=== PATIENT | female | born 1935 | race Caucasian/White ===

== ENCOUNTER 2016-08-09 16:00 | Inpatient (IN) | payer OTHER, MEDICARE ==
[~2016-08-09] VITALS: Ht 160 cm; Wt 62.8 kg
[~2016-08-09 16:00] MED LIST: AMBIEN10 MG PO; Ativan PO; DIOVAN320 MG PO; Lasix PO; Levothroid,Synthroid PO; Nucynta PO; Potassium PO; Protonix PO; THERAGRAN1 TABLET PO; TOPROL XL50 MG PO; Toprol XL PO; Tums PO; VITAMIN D1000 INTUN PO
[2016-08-09 16:47] LABS: CHLORIDE 107 mEq/L (99-109); POTASSIUM 3.9 mEq/L (3.7-5.4); SODIUM 134 mEq/L (136-147)
[2016-08-09 16:50] LABS: ANION GAP 19 MEQ/L (2-14)
[2016-08-09 16:52] LABS: GFR ESTIMATE (CALCULATED) > 59 mL/min/
[2016-08-09 16:53] LABS: EOSINOPHIL (%) 0.8 % (0-5); HEMATOCRIT 17.5 % (36.0-46.0); IMMATURE GRANULOCYTE (%) 0.8 % (0.0-0.7); IMMATURE GRANULOCYTE COUNT 0.3 K/uL; LYMPHOCYTE COUNT 0.6 K/uL (1.0-2.8); MCH 33.3 PG (29.0-34.0); MCHC 31.4 G/DL (30.0-36.0); MCV 106.1 FL (83-99); MEAN PLAT.VOLUME 8.5 uM^3 (9.5-12.4); MONOCYTE (%) 8.6 % (3-12); MONOCYTE COUNT 0.3 K/uL (0-0.8); NEUTROPHIL COUNT 2.6 K/uL (1.8-6.4); PLATELET COUNT 92 K/uL (156-360); RBC DIS.WIDTH-CV 12.8 % (11.8-14.6); RBC DIS.WIDTH-SD 48.1 % (39-53); RED BLOOD COUNT 1.65 M/uL (3.80-5.20); UREA NITROGEN (BUN) 7 mg/dL (9-23); WHITE BLOOD COUNT 3.6 K/uL (4.1-10.2)
[2016-08-09 17:05] LABS: INTER. NORMALIZED RATIO 1.6; PROTHROMBIN TIME 16.6 (9.2-11.2); PTT 69.9 (25-32)
[2016-08-09 17:09] LABS: GLUCOSE 39 mg/dL (70-99)
[2016-08-09] MEDS ORDERED: LOSARTAN POTAS100 MG PO (19:45)
[2016-08-09] MEDS ORDERED: FUROSEMIDE20 MG PO (19:46)
[2016-08-09] MEDS ORDERED: LEVOTHYROXINE50 MCG PO (19:47)
[2016-08-09] MEDS ORDERED: PROTONIX40 MG PO (19:47)
[2016-08-09] MEDS ORDERED: LORAZEPAM0.5 MG PO ×3 (19:48→19:49)
[2016-08-09] MEDS ORDERED: REFRESH TEARS15 ML BOTH EYES (19:50)
[2016-08-09] MEDS ORDERED: [UNRECOGNIZED DRUG - SUPPLY] TP (19:50)
[2016-08-09] MEDS ORDERED: OMEGA-3 KRILL1 EAC4 PO (19:51)
[2016-08-09] MEDS ORDERED: POTASSIUM GLUCONATE PO (19:53)
[2016-08-09] MEDS ORDERED: VITAMIN B-12500 MC5 SL (19:53)
[2016-08-09] MEDS ORDERED: ALOE VERA JUICE PO (19:54)
[2016-08-09 21:04] VITALS: BP 151/84
[2016-08-09 22:03] LABS: ADD MIUA? NO; BILIRUBIN NEGATIVE; BLOOD NEGATIVE; COLOR YELLOW ((YELLOW)); GLUCOSE (STRIP) NEGATIVE; KETONES NEGATIVE; LEUKOCYTES NEGATIVE; NITRITE NEGATIVE; PROTEIN (STRIP) NEGATIVE; SPECIFIC GRAVITY 1.017 (1.000-1.030); UCUL ADDED? NO; UROBILINOGEN 0.2 MG/DL (0.2-1.0)
[2016-08-09 23:06] LABS: CARBON DIOXIDE (BICARBONATE) 25.8 MEQ/L (20-31)
[2016-08-09 23:10] VITALS: BP 161/97
[2016-08-10 01:11] LABS: TROP-I INTERPRETATION NEGATIVE; TROPONIN-I 0.01 ng/mL (0.0-0.30)
[2016-08-10 04:58] LABS: POINT-OF-CARE METER ID UU14174225
[2016-08-10 07:07] LABS: MCH 33.7 PG (29.0-34.0); MCHC 34.8 G/DL (30.0-36.0); MEAN PLAT.VOLUME 9.4 uM^3 (9.5-12.4); RBC DIS.WIDTH-CV 15.8 % (11.8-14.6); RBC DIS.WIDTH-SD 55.9 % (39-53)
[2016-08-10 07:13] LABS: MCV 96.9 FL (83-99); PLATELET COUNT 170 K/uL (156-360); RED BLOOD COUNT 4.54 M/uL (3.80-5.20); WHITE BLOOD COUNT 5.5 K/uL (4.1-10.2)
[2016-08-10 07:17] LABS: TROP-I INTERPRETATION NEGATIVE; TROPONIN-I < 0.01 ng/mL (0.0-0.30)
[2016-08-10 07:22] LABS: ANION GAP 8 MEQ/L (2-14); CHLORIDE 105 MEQ/L (99-109); IRON 350 MCG/DL (35-150); SAMPLE HEMOLYSIS CHECK 0; SAMPLE ICTERIC CHECK 0; SAMPLE LIPEMIA CHECK 0; UREA NITROGEN (BUN) 12 mg/dL (9-23)
[2016-08-10 07:25] LABS: GFR ESTIMATE (CALCULATED) > 59 mL/min/; GLUCOSE 88 mg/dL (70-99); SODIUM 141 MEQ/L (136-147)
[2016-08-10 07:43] LABS: Estimated Average Glucose 120 mg/dL (70-123); HEMOGLOBIN A1c (GLYCOHEMOGLOB) 5.8 % HGB (Below 5.7)
[2016-08-10 07:53] LABS: POINT-OF-CARE METER ID UU14174225
[2016-08-10 08:17] VITALS: BP 142/84
[2016-08-10 11:07] LABS: POINT-OF-CARE METER ID UU14174225
[2016-08-10 11:30] VITALS: BP 175/96
[2016-08-10 12:58] LABS: TROP-I INTERPRETATION NEGATIVE; TROPONIN-I < 0.01 ng/mL (0.0-0.30)
[2016-08-10 15:44] VITALS: BP 161/106
[2016-08-10 19:30] VITALS: BP 163/87
[2016-08-10 23:41] VITALS: BP 140/83
[2016-08-11 04:04] VITALS: BP 120/81
[2016-08-11 07:25] LABS: ANION GAP 13 MEQ/L (2-14); CHLORIDE 103 MEQ/L (99-109); GFR ESTIMATE (CALCULATED) > 59 mL/min/; GLUCOSE 93 mg/dL (70-99); POTASSIUM 3.9 MEQ/L (3.7-5.4); SAMPLE HEMOLYSIS CHECK 0; SAMPLE ICTERIC CHECK 0; SAMPLE LIPEMIA CHECK 0; SODIUM 143 MEQ/L (136-147); UREA NITROGEN (BUN) 11 mg/dL (9-23)
[2016-08-11 07:27] VITALS: BP 162/85
[2016-08-11 07:27] LABS: HEMATOCRIT 46.3 % (36.0-46.0); MCH 33.3 PG (29.0-34.0); MCHC 34.3 G/DL (30.0-36.0); MCV 97.1 FL (83-99); MEAN PLAT.VOLUME 9.7 uM^3 (9.5-12.4); PLATELET COUNT 172 K/uL (156-360); RBC DIS.WIDTH-CV 16.1 % (11.8-14.6); RBC DIS.WIDTH-SD 56.7 % (39-53); RED BLOOD COUNT 4.77 M/uL (3.80-5.20); WHITE BLOOD COUNT 5.3 K/uL (4.1-10.2)
[2016-08-11 07:54] LABS: EOSINOPHIL (%) 0.9 % (0-5); EOSINOPHIL COUNT 0.1 K/uL (0-0.3); IMMATURE GRANULOCYTE (%) 0.2 % (0.0-0.7); LYMPHOCYTE COUNT 1.8 K/uL (1.0-2.8); MONOCYTE COUNT 0.6 K/uL (0-0.8); NEUTROPHIL (%) 54.3 % (45-76); NEUTROPHIL COUNT 2.9 K/uL (1.8-6.4)
[2016-08-11 12:00] VITALS: BP 170/100
[2016-08-11 12:18] LABS: POINT-OF-CARE METER ID UU14174225
== END 2016-08-11 14:45 | disposition home or self-care (01) | DRG 812 ==
LOC: EME 16:00 → EDOF 21:26 → 5SOUTH 21:26
PROVIDERS: Emergency Medicine; Hospitalist; Internal Medicine
PROC: 30233N1 Transfusion of Nonautologous Red Blood Cells into Peripheral Vein, Percutaneous Approach (ICD-10-PCS; principal; 2016-08-09)
DX: D64.9 Anemia, unspecified (principal); E87.2 Acidosis; I10 Essential (primary) hypertension; I25.10 Atherosclerotic heart disease of native coronary artery without angina pectoris; E03.9 Hypothyroidism, unspecified; E83.51 Hypocalcemia; D69.6 Thrombocytopenia, unspecified; E16.2 Hypoglycemia, unspecified; G89.29 Other chronic pain; K21.9 Gastro-esophageal reflux disease without esophagitis; F17.200 Nicotine dependence, unspecified, uncomplicated; Z85.3 Personal history of malignant neoplasm of breast; Z85.01 Personal history of malignant neoplasm of esophagus; Z88.0 Allergy status to penicillin; Z88.1 Allergy status to other antibiotic agents; Z66 Do not resuscitate
CPT/HCPCS: 80048; 81003; 82272; 82306; 82607; 82728; 82746; 82803; 82948; 83036; 83540; 83605; 84443; 84466; 84484; 85025; 85027; 85610; 85730; 86850; 86900; 86901; 86920; 93005; 99281; 99285; J1940; J7050; P9016

== ENCOUNTER 2018-02-14 13:46 | Day surgery (SDC) | payer OTHER, MEDICARE ==
[~2018-02-14] VITALS: Ht 149.9 cm; Wt 51.8 kg
[~2018-02-14 13:46] MED LIST changes: +ALOE VERA JUICE PO; +FUROSEMIDE20 MG PO; +HEMP OIL SL; +HYDROCODON-ACE1 EAC7 PO; +LEVOTHYROXINE50 MCG PO; +LORAZEPAM0.5 MG PO; +LOSARTAN POTAS100 MG PO; +MELATONIN10 M1 PO; +METOPROLOL SUCC50 MG PO; +MULTI-VITAMIN1 EAC4 PO; +OMEGA-3 KRILL1 EAC4 PO; +PENNSAID2 GM TP; +POTASSIUM GLUCONATE PO; +PROTONIX40 MG PO; +REFRESH TEARS15 ML BOTH EYES; -THERAGRAN1 TABLET PO; +TYLENOL EXTRA500 MG PO; +VITAMIN B-12500 MC5 PO; +VITAMIN B-12500 MC5 SL; -VITAMIN D1000 INTUN PO; +VITAMIN D31000 UNI2 PO; +[UNRECOGNIZED DRUG - OTHER] TP; +[UNRECOGNIZED DRUG - SUPPLY] TP
[2018-02-14 14:44] VITALS: BP 168/79
[2018-02-14 19:45] VITALS: BP 155/70
[2018-02-14 20:14] VITALS: BP 146/68
== END 2018-02-14 20:24 | disposition home or self-care (01) ==
LOC: SDC 13:46
PROVIDERS: Neurological Surgery
PROC: 0QU03JZ Supplement Lumbar Vertebra with Synthetic Substitute, Percutaneous Approach (ICD-10-PCS; principal; 2018-02-14)
DX: S32.010A Wedge compression fracture of first lumbar vertebra, initial encounter for closed fracture (principal); S32.030A Wedge compression fracture of third lumbar vertebra, initial encounter for closed fracture; S32.040A Wedge compression fracture of fourth lumbar vertebra, initial encounter for closed fracture; X58.XXXA Exposure to other specified factors, initial encounter; I10 Essential (primary) hypertension; E03.9 Hypothyroidism, unspecified; Z87.891 Personal history of nicotine dependence; Z88.1 Allergy status to other antibiotic agents; Z88.5 Allergy status to narcotic agent; Z88.0 Allergy status to penicillin; Z88.8 Allergy status to other drugs, medicaments and biological substances
CPT/HCPCS: 82948; J0131; J2250; J3010; Q0175

== ENCOUNTER 2018-02-17 09:09 | Inpatient (IN) | payer OTHER, MEDICARE ==
[~2018-02-17] VITALS: Ht 157.5 cm; Wt 53.9 kg
[2018-02-17 10:13] LABS: HEMATOCRIT 38.8 % (36.0-46.0); HEMOGLOBIN 12.9 G/DL (11.9-15.5); MCH 31.3 PG (29.0-34.0); MCHC 33.2 G/DL (30.0-36.0); MCV 94.2 FL (83-99); PLATELET COUNT 173 K/uL (156-360); RBC DIS.WIDTH-CV 13.5 % (11.8-14.6); RBC DIS.WIDTH-SD 46.7 % (39-53); RED BLOOD COUNT 4.12 M/uL (3.80-5.20); WHITE BLOOD COUNT 7.1 K/uL (4.1-10.2)
[2018-02-17 10:19] LABS: INTER. NORMALIZED RATIO 1.1
[2018-02-17 10:21] LABS: ALBUMIN 3.6 g/dL (3.2-4.8); CHLORIDE 104 mEq/L (99-109); POTASSIUM 3.4 mEq/L (3.7-5.4); PTT 26.3 SEC (25-37); SODIUM 140 mEq/L (136-147)
[2018-02-17 10:24] LABS: GLUCOSE 108 mg/dL (70-99); TOTAL PROTEIN 6.2 g/dL (6.4-8.3)
[2018-02-17 10:25] LABS: TOTAL BILIRUBIN 0.9 mg/dL (0.0-1.0)
[2018-02-17 10:27] LABS: ALKALINE PHOSPHATASE 153 IU/L (3-129); CREATININE 0.8 mg/dL (0.6-1.3); GFR ESTIMATE (CALCULATED) > 59 mL/min/
[2018-02-17 10:28] LABS: UREA NITROGEN (BUN) 15 mg/dL (9-23)
[2018-02-17 10:29] LABS: AST (GOT) 28 IU/L (2-34)
[2018-02-17 10:30] LABS: ALT (GPT) 22 IU/L (3-49)
[2018-02-17 10:33] LABS: TROP-I INTERPRETATION NEGATIVE; TROPONIN-I 0.01 ng/mL (0.0-0.30)
[2018-02-17 11:29] LABS: THYROTROPIN (TSH) 0.25 MIU/L (0.4-5.5)
[2018-02-17] MEDS ORDERED: ATIVAN0.5 MG PO ×3 (14:43)
[2018-02-17 16:44] LABS: MAGNESIUM 1.8 mg/dl (1.3-2.7)
[2018-02-17 18:33] VITALS: BP 159/70
[2018-02-17 18:35] LABS: TROP-I INTERPRETATION NEGATIVE; TROPONIN-I 0.01 ng/mL (0.0-0.30)
[2018-02-17 19:35] VITALS: BP 166/72
[2018-02-17 23:30] VITALS: BP 137/79
[2018-02-18 01:14] LABS: TROP-I INTERPRETATION NEGATIVE; TROPONIN-I < 0.01 ng/mL (0.0-0.30)
[2018-02-18 06:12] LABS: HEMATOCRIT 36.1 % (36.0-46.0); HEMOGLOBIN 11.7 G/DL (11.9-15.5); MCH 30.6 PG (29.0-34.0); MCHC 32.4 G/DL (30.0-36.0); MCV 94.5 FL (83-99); PLATELET COUNT 178 K/uL (156-360); RBC DIS.WIDTH-CV 13.3 % (11.8-14.6); RBC DIS.WIDTH-SD 46.2 % (39-53); RED BLOOD COUNT 3.82 M/uL (3.80-5.20); WHITE BLOOD COUNT 6.3 K/uL (4.1-10.2)
[2018-02-18 06:20] LABS: ALBUMIN 2.9 G/DL (3.2-4.8); ALKALINE PHOSPHATASE 104 IU/L (3-129); ALT (GPT) 16 IU/L (3-49); AST (GOT) 19 IU/L (2-34); CHLORIDE 107 MEQ/L (99-109); CREATININE 0.6 MG/DL (0.6-1.3); GFR ESTIMATE (CALCULATED) > 59 mL/min/; GLUCOSE 92 mg/dL (70-99); SODIUM 141 MEQ/L (136-147); TOTAL BILIRUBIN 0.6 MG/DL (0.0-1.0); TOTAL PROTEIN 4.9 G/DL (6.4-8.3); UREA NITROGEN (BUN) 11 mg/dL (9-23)
[2018-02-18 06:38] LABS: POTASSIUM 4.1 MEQ/L (3.7-5.4)
[2018-02-18 08:19] VITALS: BP 175/79
[2018-02-18 11:43] VITALS: BP 157/70
[2018-02-18 16:32] VITALS: BP 141/69
[2018-02-18 20:12] VITALS: BP 166/77
[2018-02-19 00:32] VITALS: BP 150/69
[2018-02-19 05:06] VITALS: BP 136/72
[2018-02-19 07:55] VITALS: BP 159/76
[2018-02-19] MEDS ORDERED: ZOLPIDEM TARTRAT5 MG PO (10:16)
[2018-02-19] MEDS ORDERED: fentaNYL Citrate IV (10:16)
[2018-02-19] MEDS ORDERED: LOPRESSOR50 MG PO (10:16)
[2018-02-19] MEDS ORDERED: HEPARIN SO5000 UNIT4 SC (10:16)
[2018-02-19] MEDS ORDERED: TYLENOL REGULA325 MG PO (10:16)
[2018-02-19] MEDS ORDERED: OXYCODONE HCL5 MG PO (10:16)
[2018-02-19] MEDS ORDERED: LASIX20 MG PO (12:54)
[2018-02-19] MEDS ORDERED: COZAAR100 MG PO (12:55)
[2018-02-19] MEDS ORDERED: MELATONIN10 M1 PO (12:56)
== END 2018-02-19 11:06 | DRG 310 ==
LOC: EME 09:09 → EDOF 14:36 → ENRESERV 14:44 → 4SOUTH 18:16
PROVIDERS: Emergency Medicine; Physician Assistant
DX: I47.1 Supraventricular tachycardia (principal); I35.0 Nonrheumatic aortic (valve) stenosis; R19.7 Diarrhea, unspecified; I10 Essential (primary) hypertension; E03.9 Hypothyroidism, unspecified; R73.03 Prediabetes; M48.56XD Collapsed vertebra, not elsewhere classified, lumbar region, subsequent encounter for fracture with routine healing; R26.9 Unspecified abnormalities of gait and mobility; R53.1 Weakness; R62.7 Adult failure to thrive; Z66 Do not resuscitate; Z98.890 Other specified postprocedural states; Z85.01 Personal history of malignant neoplasm of esophagus; Z85.3 Personal history of malignant neoplasm of breast; Z90.10 Acquired absence of unspecified breast and nipple; Z60.2 Problems related to living alone
CPT/HCPCS: 71045; 71275; 74177; 80053; 82948; 83735; 84439; 84443; 84484; 85027; 85379; 85610; 85730; 87493; 93005; 99281; 99285; J0131; J1644; J2250; J3010; J7040; Q0175

== ENCOUNTER 2018-02-19 09:48 | Inpatient (IN) | payer OTHER, MEDICARE ==
[~2018-02-19] VITALS: Ht 149.9 cm; Wt 52.3 kg
[~2018-02-19 09:48] MED LIST changes: +ATIVAN0.5 MG PO
[2018-02-19] MEDS ORDERED: TYLENOL REGULA325 MG PO (10:16)
[2018-02-19] MEDS ORDERED: LOPRESSOR50 MG PO (10:16)
[2018-02-19] MEDS ORDERED: fentaNYL Citrate IV (10:16)
[2018-02-19] MEDS ORDERED: HEPARIN SO5000 UNIT4 SC (10:16)
[2018-02-19] MEDS ORDERED: ZOLPIDEM TARTRAT5 MG PO (10:16)
[2018-02-19] MEDS ORDERED: OXYCODONE HCL5 MG PO (10:16)
[2018-02-19 11:15] VITALS: BP 156/74
[2018-02-19] MEDS ORDERED: LASIX20 MG PO (12:54)
[2018-02-19] MEDS ORDERED: COZAAR100 MG PO (12:55)
[2018-02-19] MEDS ORDERED: MELATONIN10 M1 PO (12:56)
[2018-02-19 15:46] VITALS: BP 141/69
[2018-02-19 23:51] VITALS: BP 148/82
[2018-02-20 05:27] VITALS: BP 142/70
[2018-02-20 07:16] LABS: HEMATOCRIT 37.6 % (36.0-46.0); HEMOGLOBIN 12.4 G/DL (11.9-15.5); MCH 30.2 PG (29.0-34.0); MCV 91.5 FL (83-99); PLATELET COUNT 195 K/uL (156-360); RBC DIS.WIDTH-SD 43.4 % (39-53); RED BLOOD COUNT 4.11 M/uL (3.80-5.20); WHITE BLOOD COUNT 5.9 K/uL (4.1-10.2)
[2018-02-20 07:54] LABS: ALBUMIN 3.1 G/DL (3.2-4.8); ALKALINE PHOSPHATASE 123 IU/L (3-129); ALT (GPT) 14 IU/L (3-49); AST (GOT) 16 IU/L (2-34); CHLORIDE 103 MEQ/L (99-109); CREATININE 0.7 MG/DL (0.6-1.3); GFR ESTIMATE (CALCULATED) > 59 mL/min/; GLUCOSE 88 mg/dL (70-99); POTASSIUM 4.1 MEQ/L (3.7-5.4); SODIUM 139 MEQ/L (136-147); TOTAL BILIRUBIN 0.6 MG/DL (0.0-1.0); TOTAL PROTEIN 5.4 G/DL (6.4-8.3); UREA NITROGEN (BUN) 13 mg/dL (9-23)
[2018-02-20 15:42] VITALS: BP 146/66
[2018-02-21 05:24] VITALS: BP 139/80
[2018-02-21 15:39] VITALS: BP 134/70
[2018-02-22 04:48] VITALS: BP 141/70
[2018-02-22 15:11] VITALS: BP 137/75
[2018-02-22 21:30] VITALS: BP 148/82
[2018-02-23 04:18] VITALS: BP 129/72
[2018-02-23 09:11] LABS: BASOPHIL (%) 0.6 % (0-1); EOSINOPHIL (%) 2.8 % (0-5); EOSINOPHIL COUNT 0.2 K/uL (0-0.3); HEMOGLOBIN 12.6 G/DL (11.9-15.5); IMMATURE GRANULOCYTE (%) 3.7 % (0.0-0.7); LYMPHOCYTE (%) 27.9 % (15-42); LYMPHOCYTE COUNT 1.8 K/uL (1.0-2.8); MCH 30.6 PG (29.0-34.0); MCHC 33.2 G/DL (30.0-36.0); MCV 92.2 FL (83-99); MONOCYTE (%) 9.3 % (3-12); MONOCYTE COUNT 0.6 K/uL (0-0.8); NEUTROPHIL (%) 55.7 % (45-76); NEUTROPHIL COUNT 3.6 K/uL (1.8-6.4); PLATELET COUNT 250 K/uL (156-360); RBC DIS.WIDTH-CV 13.4 % (11.8-14.6); RBC DIS.WIDTH-SD 45.6 % (39-53); RED BLOOD COUNT 4.12 M/uL (3.80-5.20); WHITE BLOOD COUNT 6.4 K/uL (4.1-10.2)
[2018-02-23 09:20] LABS: CHLORIDE 105 mEq/L (99-109); POTASSIUM 4.7 mEq/L (3.7-5.4); SODIUM 141 mEq/L (136-147)
[2018-02-23 09:22] LABS: GLUCOSE 78 mg/dL (70-99)
[2018-02-23 09:26] LABS: CREATININE 0.8 mg/dL (0.6-1.3); GFR ESTIMATE (CALCULATED) > 59 mL/min/
[2018-02-23 09:27] LABS: UREA NITROGEN (BUN) 13 mg/dL (9-23)
[2018-02-23 10:20] LABS: THYROTROPIN (TSH) 0.57 MIU/L (0.4-5.5)
[2018-02-23 15:02] VITALS: BP 124/62
[2018-02-23 22:01] VITALS: BP 139/81
[2018-02-24 05:21] VITALS: BP 136/74
[2018-02-24 15:25] VITALS: BP 111/57
[2018-02-25 04:04] VITALS: BP 116/61
[2018-02-25 15:24] VITALS: BP 95/54
[2018-02-25 20:36] VITALS: BP 135/69
[2018-02-26 03:46] VITALS: BP 150/81
[2018-02-26 14:16] VITALS: BP 116/62
[2018-02-26] MEDS ORDERED: POLYETHYLENE GL17 GM PO (21:32)
[2018-02-26] MEDS ORDERED: LOPRESSOR100 M1 PO (21:32)
[2018-02-27 06:48] VITALS: BP 122/66
== END 2018-02-27 14:15 | disposition home or self-care (01) | DRG 949 ==
LOC: 3WEST 09:48 → ENPENDDIS 02-25 → 3WEST 02-27 14:15
PROVIDERS: Family Medicine Sports Medicine; Physical Medicine & Rehabilitation Pain Medicine
PROC: F07M0ZZ Range of Motion and Joint Mobility Treatment of Musculoskeletal System - Whole Body (ICD-10-PCS; principal; 2018-02-19)
DX: Z48.811 Encounter for surgical aftercare following surgery on the nervous system (principal); R53.1 Weakness; I47.1 Supraventricular tachycardia; M41.9 Scoliosis, unspecified; D69.6 Thrombocytopenia, unspecified; E83.51 Hypocalcemia; F41.1 Generalized anxiety disorder; E03.9 Hypothyroidism, unspecified; I27.20 Pulmonary hypertension, unspecified; G62.9 Polyneuropathy, unspecified; I10 Essential (primary) hypertension; K59.00 Constipation, unspecified; I48.91 Unspecified atrial fibrillation; E77.8 Other disorders of glycoprotein metabolism; E88.09 Other disorders of plasma-protein metabolism, not elsewhere classified; K57.90 Diverticulosis of intestine, part unspecified, without perforation or abscess without bleeding; D64.9 Anemia, unspecified; R73.03 Prediabetes; R26.2 Difficulty in walking, not elsewhere classified; M54.5 Low back pain; Z60.2 Problems related to living alone; G89.18 Other acute postprocedural pain; Z85.01 Personal history of malignant neoplasm of esophagus; Z85.3 Personal history of malignant neoplasm of breast; Z87.891 Personal history of nicotine dependence; Z90.49 Acquired absence of other specified parts of digestive tract; Z90.710 Acquired absence of both cervix and uterus; Z90.12 Acquired absence of left breast and nipple; Z88.0 Allergy status to penicillin; Z88.1 Allergy status to other antibiotic agents; Z88.5 Allergy status to narcotic agent; Z80.3 Family history of malignant neoplasm of breast
CPT/HCPCS: 72070; 72100; 74018; 80048; 80053; 84443; 85025; 85027; 93306; 97110 GO; 97530 GP; J1644; J1650